=== PATIENT | male | born 2000 | race Caucasian/White ===

== ENCOUNTER 2020-08-29 14:46 | Emergency (ER) | payer OTHER, SELFPAY ==
[2020-08-29 15:01] VITALS: BP 138/65; PULSE 83; RESP 20; TEMP 37.4; O2SAT 99
--- NOTE | 2020-08-29 15:06 | ED.GENADULT ---
HPI - General Adult General Chief complaint: Ear Stated complaint: R/ear pain/sore throat Time Seen by Provider: 08/29/20 14:50 Source: patient Mode of arrival: ambulatory Limitations: no limitations History of Present Illness HPI narrative: 19 y/o male. PMH: None reported. Presents to ED today with acute complaints of RT side ear ache and 'sore throat' for past 5 days. He describes ear pain as 'throbbing'. No auditory trauma or loss. He notes sore throat to have developed with past 3 days. States 'throat tenderness , more on RT side. Denies dysphagia or dyspnea. No fever, chills, [place], chest pain, cough, abdominal pain, N/V/D. Does report some runny nose . No known ill contacts. This patient reports to have previously bee tested for Covid 19, which yielded negative results. He denies additional acue c/o upon PE. Related Data Home Medications Medication Instructions Recorded Confirmed No Home Medications 08/29/20 08/29/20 Allergies Allergy/AdvReac Type Severity Reaction Status Date / Time No Known Allergies Allergy Verified 07/20/17 13:07 Review of Systems Review of Systems: Narrative: CONSTITUTIONAL: Denies fever, chills, sweats. EYES: Denies visual changes, redness, discharge. ENT: Sore Throat, RT side ear ache. CARDIOVASCULAR: Denies chest pain, palpitations, edema. RESPIRATORY: Denies dyspnea, wheezing, cough GASTROINTESTINAL: Denies abdominal pain, nausea, vomiting, diarrhea. GENITOURINARY: Denies dysuria, hematuria, abnormal discharge SKIN: Denies rash or itching. MUSCULOSKELETAL: Denies acute back pain, joint pain, or myalgia. NEUROLOGIC: Denies numbness, or focal weakness. PSYCHIATRIC: Denies anxiety or depression. All systems reviewed & are unremarkable except as noted in HPI and below Exam Narrative: Exam Narrative: GENERAL: This is a well-nourished, well-developed patient, in no apparent distress. HEAD: normocephalic, atraumatic. EYES: PERRL. Sclera clear/white. Vision is grossly intact. EARS: External ears normal, auditory canal LT is clear, RT auditory canal with erythema and mild yellow discharge. RT TM buldging, without perforation. LT TM normal without perforation. Hearing grossly intact. Positive Tragus manipulation RT. NOSE: External nose normal with no obvious nasal discharge, nares without redness. Positive Rhinorrhea. THROAT: Mucous membranes mois. Pharyngeal erythema w/o exudate. Positive PND. NECK: Neck supple, non-tender without lymphadenopathy, masses or thyromegaly. No Nuchal Rigidity. CARDIOVASCULAR: Regular rate and rhythm without murmurs, gallops, or rubs. RESPIRATORY: Clear to auscultation. Breath sounds equal bilaterally. No wheezes, rales, or rhonchi. GASTROINTESTINAL: Abdomen soft, non-tender, nondistended. Bowel sounds are active. No hepato-splenomegaly, or palpable masses. No guarding. SKIN: warm, intact with no suspicious lesions or rash, good texture and turgor. NEURO: awake, alert, and oriented to person, place and time. There were no obvious focal neurologic abnormalities. Steady gait EXTREMITIES: Normal range of motion. No edema. No calf tenderness. Negative Homans sign bilaterally. BACK: Nontender without deformity or crepitance. No flank tenderness. [place] Coma Scale Eye Opening: Spontaneous 4 Aarti Coma Scale Motor: Obeys Commands 6 Aarti Coma Scale Verbal: Oriented 5 Course Course Emergency Course: Reviewed with patient that rapid strep NEGATIVE and mono POC test was POSITIVE in [facility]. Plan of care Otitis Media/Pharyngitis/Rapides has been reviewed with client. Use medications as recommended Increase fluid intake, get rid of current toothbrush, toothpaste, and mouthwash after 3 days of treatment. Follow-up with your PCP within 5-7 days or for worsening symptoms or sooner if needed. Vital Signs Vital signs: Vital Signs Temperature 37.4 C 08/29/20 15: Pulse Rate 83 08/29/20 15:01 Respiratory Rate 20 08/29/20 15:01 Blood Pressure 1
== END 2020-08-29 15:29 | disposition home or self-care (01) ==
PROVIDERS: Emergency Provider Nurse Practitioner Adult Health
DX: H65.01 Acute serous otitis media, right ear (principal); J02.0 Streptococcal pharyngitis; B27.90 Infectious mononucleosis, unspecified without complication
CPT/HCPCS: 36416; 86308; 87081; 87880; 99213; G0463